=== PATIENT | female | born 1940 | race American Indian/Alaskan Native ===

== ENCOUNTER 2018-07-27 09:28 | Inpatient (IN) | payer MEDICARE, OTHER ==
[2018-07-27 10:43] LABS: BASO # 0.03 K/mm3 (0.0-2.0); BASO % 0.5 % (0.0-3.0); EOS # 0.1 (0.0-0.7); EOS % 2.2 % (1.5-5.0); GRAN # 4.09 (1.4-6.5); GRAN % 63.8 % (50.0-68.0); LYMPH # 1.7 (1.2-3.4); LYMPH % 26.3 % (22.0-35.0); MEAN CELL VOLUME 60.9 fl (80.0-105.0); MEAN CORPUSCULAR HEMOGLOBIN 15.7 pg (25.0-35.0); MEAN CORPUSCULAR HGB CONC 25.8 g/dl (31.0-37.0); MEAN PLATELET VOLUME 8.6 fl (7.0-11.0); MONO # 0.5 (0.1-0.6); MONO % 7.2 % (1.0-6.0); RBC 3.25 10^6/uL (3.5-6.1); RED CELL DISTRIBUTION WIDTH 20.2 % (11.5-14.5); WHITE BLOOD COUNT 6.4 10^3/uL (4.5-11.0)
[2018-07-27 10:47] LABS: HEMOGLOBIN 5.1 g/dL (12.0-16.0)
--- NOTE | 2018-07-27 10:47 | ED PDOC ---
Arrival/HPI - General Chief Complaint: Dizziness/Lightheaded Time Seen by Provider: 07/27/18 09:29 Historian: Patient - History of Present Illness Narrative History of Present Illness (Text): 07/27/18 10:40 78yo female with pmhx of Anemia bib EMS for complaint of generalized weakness. Patient states she saw her PMD on Sunday for generalized weakness and SOB and was referred for blood test. Did blood test yesterday and her PMD sent [place] Police to her house this morning to bring her to ED. States the SOB resolved and she is still having mild weakness. Notes history of melena last month and BPR few months ago. States she received blood transfusion 2years ago, s/p GI bleed. Currently not on any medication. Denies abdominal pain, chest pain, dizziness, nausea, vomiting, focal weakness, any other complaint. Past Medical History - Provider Review Nursing Documentation Reviewed: Yes - Cardiac Hx Cardiac Disorders: No - Pulmonary Hx Respiratory Disorders: No - Neurological Hx Neurological Disorder: No - HEENT Hx HEENT Disorder: No - Renal Hx Renal Disorder: No - Endocrine/Metabolic Hx Endocrine Disorders: No - Hematological/Oncological Hx Blood Disorders: Yes Hx Anemia: Yes Hx Blood Transfusions: Yes Hx Blood Transfusion Reaction: No - Integumentary Hx Dermatological Disorder: No - Musculoskeletal/Rheumatological Hx Musculoskeletal Disorders: No - Gastrointestinal Hx Gastrointestinal Disorders: Yes Hx Colitis: Yes Hx Gastritis: Yes Hx Hemorrhoids: Yes - Genitourinary/Gynecological Hx Genitourinary Disorders: No - Psychiatric Hx Psychophysiologic Disorder: No Hx Substance Use: No - Anesthesia Hx Anesthesia: Yes Hx Anesthesia Reactions: No Hx Malignant Hyperthermia: No - Suicidal Assessment Feels Threatened In Home Enviroment: No Family/Social History - Physician Review Nursing Documentation Reviewed: Yes Family/Social History: Unknown Family HX Smoking Status: Never Smoked Hx Alcohol Use: No Hx Substance Use: No Allergies/Home Meds Allergies/Adverse Reactions: Allergies No Known Allergies Allergy (Verified 07/27/18 11:59) Review of Systems - Physician Review All systems were reviewed & negative as marked: Yes - Review of Systems Constitutional: Fatigue Eyes: Normal ENT: Normal Respiratory: Normal Cardiovascular: Normal Gastrointestinal: Normal Genitourinary Female: Normal Musculoskeletal: Normal Skin: Normal Neurological: Normal Endocrine: Normal Hemo/Lymphatic: Normal Psychiatric: Normal Physical Exam Vital Signs Reviewed: Yes Vital Signs Temp Pulse Resp BP Pulse Ox 07/27/18 09:28 98.4 F 95 H 18 115/64 100 Temperature: Afebrile Blood Pressure: Normal Pulse: Regular Respiratory Rate: Normal Appearance: Positive for: Well-Appearing, Non-Toxic, Comfortable Pain Distress: None Mental Status: Positive for: Alert and Oriented X 3 - Systems Exam Head: Present: Atraumatic, Normocephalic Pupils: Present: PERRL Extroacular Muscles: Present: EOMI Conjunctiva: Present: Normal Mouth: Present: Moist Mucous Membranes Neck: Present: Normal Range of Motion Respiratory/Chest: Present: Clear to Auscultation, Good Air Exchange. No: Respiratory Distress, Accessory Muscle Use Cardiovascular: Present: Regular Rate and Rhythm, Normal S1, S2. No: Murmurs Abdomen: Present: Normal Bowel Sounds. No: Tenderness, Distention, Peritoneal Signs, Rebound, Guarding, McBurney's Point Tender, Rovsing's Sign Present Back: Present: Normal Inspection Upper Extremity: Present: Normal Inspection. No: Cyanosis, Edema Lower Extremity: Present: Normal Inspection. No: Edema Neurological: Present: GCS=15, CN II-XII Intact, Speech Normal Skin: Present: Warm, Dry, Normal Color. No: Rashes Psychiatric: Present: Alert, Oriented x 3, Normal Insight, Normal Concentration Medical Decision Making ED Course and Treatment: 07/27/18 11:21 78yo female referred to ED by her PMD for generalized weakness and low hemoglobin. Labs EKG Chest xray Type and screen EKG NSR @ 82bpm Chest xray - NAD Labs was reviewed and h/h of 5.1/19.8 notes 3units of PRBC ordered Consent for transfusion obtained Pt was admitted for symptomatic anemia Case was GABI Spencer and she accepted pt for admission. Requested Dr. Reis consult. Case was GABI Reis who saw pt in 2016 for same complaint. Disposition/Present on Arrival - Present on Arrival Any Indicators Present on Arrival: No History of DVT/PE: No History of Uncontrolled Diabetes: No Urinary Catheter: No History of Decub. Ulcer: No History Surgical Site Infection Following: None - Disposition Have Diagnosis and Disposition been Completed?: Yes Diagnosis: Symptomatic anemia Disposition: HOSPITALIZED Disposition Time: 11:00 Patient Plan: Admission Patient Problems: Current Active Problems Problem Status Onset Symptomatic anemia Acute Condition: FAIR
[2018-07-27 10:58] LABS: INR 1.02; PROTHROMBIN TIME 11.7 SECONDS (9.4-12.5)
[2018-07-27 10:59] LABS: PARTIAL THROMBOPLASTIN TIME 19.9 Seconds (25.1-36.5)
[2018-07-27 11:15] LABS: ALBUMIN 3.9 g/dL (3.0-4.8); ALT/SGPT 22 U/L (7-56); AST/SGOT 35 U/L (14-36); BLOOD UREA NITROGEN 15 mg/dL (7-21); CALCIUM 9.1 mg/dL (8.4-10.5); GFR NON-AFRICAN AMERICAN > 60
[2018-07-27 11:21] LABS: URINE APPEARANCE CLEAR (CLEAR); URINE BILIRUBIN NEGATIVE (NEGATIVE); URINE BLOOD NEGATIVE (NEGATIVE); URINE COLOR LIGHT YELLOW (YELLOW); URINE GLUCOSE (UA) NEGATIVE (NEGATIVE); URINE LEUKOCYTE ESTERASE NEGATIVE Leu/uL (NEGATIVE); URINE PROTEIN NEGATIVE mg/dL (<30 mg/dL); URINE UROBILINOGEN 0.2 E.U./dL (<1 E.U./dL)
[2018-07-27 11:25] LABS: TROPONIN I < 0.01 ng/mL
--- NOTE | 2018-07-27 14:17 | CP.PCM.CON ---
<Charlene Goyal - Last Filed: 07/27/18 14:19> History of Present Illness - History of Present Illness History of Present Illness: Gastroenterology Fellow/PGY6 Consult Note 78 year old female with PMH of PUD, colonic mass (without dysplasia/carcinoma on pathology) s/p extended right colectomy with anastomosis 11/2014, and iron deficiency anemia presenting with weakness and anemia on outpatient labs. Patient notes fatigue and not feeling well prompting her to see her PC{ this past Sunday and blood work obtained and follow up request for ER presentation due to low blood count. Patient endorses remote history of black stool with bright red blood per rectum for a few days in June 2018. Denies nausea, vomiting, hematemesis, abdominal pain, diarrhea, constipation, melena, or hematochezia. Prior EGD 12/2015 showed H pylori negative gastritis and marjorie ulcers. Colonoscopy 01/2016 showed end-side ileo-colonic anastomosis. EGD 11/2014- H. pylori gastritis. Family History- denies stomach cancer, colon cancer Social History- denies tobacco, alcohol, illicit drug use Surgical History- extended right colectomy with anastomosis 11/2014 Review of Systems - Review of Systems Review of Systems: 12-point review of systems negative except for as above Past Patient History - Past Medical History & Family History Past Medical History?: Yes - Past Social History Smoking Status: Never Smoked - CARDIAC Hx Cardiac Disorders: No - PULMONARY Hx Respiratory Disorders: No - NEUROLOGICAL Hx Neurological Disorder: No - HEENT Hx HEENT Problems: No - RENAL Hx Chronic Kidney Disease: No - ENDOCRINE/METABOLIC Hx Endocrine Disorders: No - HEMATOLOGICAL/ONCOLOGICAL Hx Blood Disorders: Yes Hx Anemia: Yes Hx Blood Transfusions: Yes Hx Blood Transfusion Reaction: No - INTEGUMENTARY Hx Dermatological Problems: No - MUSCULOSKELETAL/RHEUMATOLOGICAL Hx Musculoskeletal Disorders: No - GASTROINTESTINAL Hx Gastrointestinal Disorders: Yes Hx Colitis: Yes Hx Gastritis: Yes Hx Hemorrhoids: Yes - GENITOURINARY/GYNECOLOGICAL Hx Genitourinary Disorders: No - PSYCHIATRIC Hx Psychophysiologic Disorder: No Hx Substance Use: No - SURGICAL HISTORY Hx Surgeries: Yes - ANESTHESIA Hx Anesthesia: Yes Hx Anesthesia Reactions: No Hx Malignant Hyperthermia: No Meds Allergies/Adverse Reactions: Allergies Allergy/AdvReac Type Severity Reaction Status Date / Time No Known Allergies Allergy Verified 07/27/18 11:59 - Medications Medications: Current Medications Pantoprazole Sodium (Protonix Inj) 40 mg IVP DAILY TAYLOR Last Admin: 07/27/18 11:58 Dose: Not Given Physical Exam - Constitutional Appears: Non-toxic, No Acute Distress - Head Exam Head Exam: ATRAUMATIC, NORMOCEPHALIC - Eye Exam Eye Exam: EOMI, PERRL. absent: Scleral icterus Pupil Exam: PERRL. absent: Miosis, Mydriatic - ENT Exam ENT Exam: Mucous Membranes Moist, Normal Oropharynx - Neck Exam Neck exam: Positive for: Full Rom, Normal Inspection - Respiratory Exam Respiratory Exam: Clear to Auscultation Bilateral. absent: Rales, Rhonchi, Wheezes - Cardiovascular Exam Cardiovascular Exam: RRR, +S1, +S2. absent: Gallop, Rubs - GI/Abdominal Exam GI & Abdominal Exam: Normal Bowel Sounds, Soft. absent: Distended, Firm, Mass, Organomegaly, Rigid, Tenderness - Extremities Exam Extremities exam: Positive for: normal inspection. Negative for: pedal edema - Neurological Exam Neurological exam: Alert, Oriented x3 - Psychiatric Exam Psychiatric exam: Normal Affect, Normal Mood - Skin Skin Exam: Dry, Intact, Normal Color, Warm Results - Vital Signs Recent Vital Signs: Last Vital Signs Temp 97.6 F 07/27/18 13:00 Pulse 85 07/27/18 13:00 Resp 16 07/27/18 13:00 BP 116/63 07/27/18 13:00 Pulse Ox 100 07/27/18 13:00 - Labs Result Diagrams: 07/27/18 10:25 07/27/18 10:25 Labs: Laboratory Results - last 24 hr 07/27/18 07/27/18 07/27/18 10:25 10:25 10:25 WBC 6.4 RBC 3.25 L Hgb 5.1 L* Hct 19.8 L* MCV 60.9 L MCH 15.7 L MCHC 25.8 L RDW 20.2 H Plt Count 388 MPV 8.6 Gran % 63.8 Lymph % (Auto) 26.3 Levy % (Auto) 7.2 H Eos % (Auto) 2.2 Baso % (Auto) 0.5 Gran # 4.09 Lymph # (Auto) 1.7 Levy # (Auto) 0.5 Eos # (Auto) 0.1 Baso # (Auto) 0.03 PT 11.7 INR 1.02 APTT 19.9 L Sodium 139 Potassium 4.2 Chloride 109 H Carbon Dioxide 23 Anion Gap 11 BUN 15 Creatinine 0.7 Est GFR ( Amer) > 60 Est GFR (Non-Af Amer) > 60 Random Glucose 92 Calcium 9.1 Total Bilirubin 0.4 AST 35 ALT 22 Alkaline Phosphatase 71 Lactate Dehydrogenase 564 Total Creatine Kinase 138 Troponin I < 0.01 Total Protein 7.7 Albumin 3.9 Globulin 3.8 Albumin/Globulin Ratio 1.0 L Urine Color Urine Appearance Urine pH Ur Specific [place] Urine Protein Urine Glucose (UA) Urine Ketones Urine Blood Urine Nitrate Urine Bilirubin Urine Urobilinogen Ur Leukocyte Esterase Blood Type Antibody Screen Crossmatch BBK History Checked 07/27/18 07/27/18 10:50 10:50 WBC RBC Hgb Hct MCV MCH MCHC RDW Plt Count MPV Gran % Lymph % (Auto) Levy % (Auto) Eos % (Auto) Baso % (Auto) Gran # Lymph # (Auto) Levy # (Auto) Eos # (Auto) Baso # (Auto) PT INR APTT Sodium Potassium Chloride Carbon Dioxide Anion Gap BUN Creatinine Est GFR ( Amer) Est GFR (Non-Af Amer) Random Glucose Calcium Total Bilirubin AST ALT Alkaline Phosphatase Lactate Dehydrogenase Total Creatine Kinase Troponin I Total Protein Albumin Globulin Albumin/Globulin Ratio Urine Color Light yellow Urine Appearance Clear Urine pH 6.0 Ur Specific [place] 1.025 Urine Protein Negative Urine Glucose (UA) Negative Urine Ketones Negative Urine Blood Negative Urine Nitrate Negative Urine Bilirubin Negative Urine Urobilinogen 0.2 Ur Leukocyte Esterase Negative Blood Type O POSITIVE Antibody Screen Negative Crossmatch See Detail BBK History Checked Patient has bt Assessment & Plan - Assessment and Plan (Free Text) Assessment: 78 year old female with PMH of PUD, colonic mass (without dysplasia/carcinoma on pathology) s/p extended right colectomy with anastomosis 11/2014, and iron deficiency anemia presenting with weakness and anemia on outpatient labs. Active treatment of symptomatic anemia. Prior EGD 12/2015 showed H pylori negative gastritis and marjorie ulcers. Colonoscopy 01/2016 showed end-side ileo-colonic anastomosis. EGD 11/2014- H. pylori gastritis. Plan: -no overt signs of GI bleed -likely chronic blood loss -ordered for 3 Units pRBCs -monitor H/H -continue PPI IV BID -liquid diet -bowel prep Sunday -plan for EGD and colonoscopy Sunday <Vivienne Reis V - Last Filed: 07/28/18 00:01> Meds - Medications Medications: Current Medications Pantoprazole Sodium (Protonix Inj) 40 mg IVP DAILY TAYLOR Last Admin: 07/27/18 11:58 Dose: Not Given Results - Vital Signs Recent Vital Signs: Last Vital Signs Temp 98.6 F 07/27/18 21:25 Pulse 82 07/27/18 21:25 Resp 18 07/27/18 21:25 BP 121/78 07/27/18 23:44 Pulse Ox 99 07/27/18 17:48 - Labs Result Diagrams: 07/27/18 10:25 07/27/18 10:25 Labs: Laboratory Results - last 24 hr 07/27/18 07/27/18 07/27/18 10:25 10:25 10:25 WBC 6.4 RBC 3.25 L Hgb 5.1 L* Hct 19.8 L* MCV 60.9 L MCH 15.7 L MCHC 25.8 L RDW 20.2 H Plt Count 388 MPV 8.6 Gran % 63.8 Lymph % (Auto) 26.3 Levy % (Auto) 7.2 H Eos % (Auto) 2.2 Baso % (Auto) 0.5 Gran # 4.09 Lymph # (Auto) 1.7 Levy # (Auto) 0.5 Eos # (Auto) 0.1 Baso # (Auto) 0.03 PT 11.7 INR 1.02 APTT 19.9 L Sodium 139 Potassium 4.2 Chloride 109 H Carbon Dioxide 23 Anion Gap 11 BUN 15 Creatinine 0.7 Est GFR ( Amer) > 60 Est GFR (Non-Af Amer) > 60 Random Glucose 92 Calcium 9.1 Total Bilirubin 0.4 AST 35 ALT 22 Alkaline Phosphatase 71 Lactate Dehydrogenase 564 Total Creatine Kinase 138 Troponin I < 0.01 Total Protein 7.7 Albumin 3.9 Globulin 3.8 Albumin/Globulin Ratio 1.0 L Urine Color Urine Appearance Urine pH Ur Specific [place] Urine Protein Urine Glucose (UA) Urine Ketones Urine Blood Urine Nitrate Urine Bilirubin Urine Urobilinogen Ur Leukocyte Esterase Blood Type Antibody Screen Crossmatch BBK History Checked 07/27/18 07/27/18 10:50 10:50 WBC RBC Hgb Hct MCV MCH MCHC RDW Plt Count MPV Gran % Lymph % (Auto) Levy % (Auto) Eos % (Auto) Baso % (Auto) Gran # Lymph # (Auto) Levy # (Auto) Eos # (Auto) Baso # (Auto) PT INR APTT Sodium Potassium Chloride Carbon Dioxide Anion Gap BUN Creatinine Est GFR ( Amer) Est GFR (Non-Af Amer) Random Glucose Calcium Total Bilirubin AST ALT Alkaline Phosphatase Lactate Dehydrogenase Total Creatine Kinase Troponin I Total Protein Albumin Globulin Albumin/Globulin Ratio Urine Color Light yellow Urine Appearance Clear Urine pH 6.0 Ur Specific [place] 1.025 Urine Protein Negative Urine Glucose (UA) Negative Urine Ketones Negative Urine Blood Negative Urine Nitrate Negative Urine Bilirubin Negative Urine Urobilinogen 0.2 Ur Leukocyte Esterase Negative Blood Type O POSITIVE Antibody Screen Negative Crossmatch See Detail BBK History Checked Patient has bt Attending/Attestation - Attestation I have personally seen and examined this patient.: Yes I have fully participated in the care of the patient.: Yes I have reviewed all pertinent clinical information: Yes Notes (Text): This is an addendum to GI consult report dictated by the GI Fellow. The patient was seen and examined earlier. Medical records, lab studies, imagings were reviewed. Last 24 hours events reviewed. Agreed with the above treatment plan as outlined in GI Fellow 's notes with the addition of the following 07/28/18 00:01
--- NOTE | 2018-07-27 14:22 | HP ---
DATE OF EXAM: 07/27/2018 HISTORY OF PRESENT ILLNESS: The patient is a 78-year-old, a patient of Dr. Chiquita Butler. The patient states she went to see her PMD who did some blood work as she was found to be anemic. So, she was contacted and was brought to emergency room. The patient saw her PMD this past Sunday, 3 days ago, for generalized weakness and she was getting short of breath easily. The PCP's office was trying to contact the patient, but she did not answer. So, police went to her house this morning and brought her to emergency room for further evaluation. She does complain of shortness of breath yet, does complain of feeling weak and gets short of breath easily. She does have a history of black stools. She does have a history of previous GI bleeds. Denies any nausea or vomiting. No abdominal pain. PAST MEDICAL HISTORY: Significant for; 1. Gastritis. 2. Colitis. 3. History of hemorrhoid. 4. Iron-deficiency anemia. PAST SURGICAL HISTORY: Significant for partial colectomy because of a polypoidal mass. ALLERGIES: SHE IS NOT ALLERGIC TO ANY MEDICATIONS. MEDICATIONS: At home, she is on Protonix 40 daily. REVIEW OF SYSTEMS: Denies smoking, drinking, or alcohol use. Review of systems is significant for generalized weakness and easy fatigability. PHYSICAL EXAMINATION GENERAL: She is awake, alert, oriented, communicative. VITAL SIGNS: She is afebrile, pulse 95, respirations 18, blood pressure 115/64. LUNGS: Bilateral fair airflow. No rhonchi or crackle. HEART: S1, S2 audible. ABDOMEN: Soft, nontender. No rebound, no guarding. NEUROLOGIC: The patient is awake, alert, oriented, communicative. LABORATORY DATA: WBC 6.4, hemoglobin 5.1, hematocrit 19.8, platelets of 388. PT 11.7, INR 1.02, PTT 19.9. Chem-7 is pending. ASSESSMENT: 1. Symptomatic anemia, probably gastrointestinal bleed. 2. History of partial colectomy. 3. History peptic ulcer disease. PLAN: We will transfuse 2 packs of RBCs, start her on PPI. GI consult by Dr. Reis has been requested. We will follow up her CBC and CMP and make further recommendations and we will also discuss with GI for further management. Airam Spencer MD
--- NOTE | 2018-07-27 16:24 | RAD ---
Date of service: 07/27/2018 HISTORY: admission COMPARISON: No prior. FINDINGS: LUNGS: No active pulmonary disease. PLEURA: No significant pleural effusion identified, no pneumothorax apparent. CARDIOVASCULAR: No aortic atherosclerotic calcification present. Normal cardiac size. No congestive change. Retrocardiac hiatal hernia noted. OSSEOUS STRUCTURES: No significant abnormalities. VISUALIZED UPPER ABDOMEN: Normal. OTHER FINDINGS: None. IMPRESSION: No acute infiltrate. Hiatal hernia.
[2018-07-27] MEDS ORDERED: Pneumococcal 23-Valent Vaccine IM ONE (16:48)
[2018-07-27] MEDS ORDERED: Influenza Vaccine 60 mcg/0.5 mL SYR (4YR UP) IM ONE (16:48)
[2018-07-27 16:49] VITALS: BMI 25.8
--- NOTE | 2018-07-28 06:13 | CARD ---
APPROVED REPORT Date of service: 07/27/2018 EKG Measurement Heart [id number] <Conclusion> Normal sinus rhythm Normal ECG
[2018-07-28 08:34] LABS: BASO # 0.03 K/mm3 (0.0-2.0); BASO % 0.5 % (0.0-3.0); EOS # 0.3 (0.0-0.7); GRAN # 3.04 (1.4-6.5); GRAN % 53.8 % (50.0-68.0); LYMPH # 1.7 (1.2-3.4); LYMPH % 30.6 % (22.0-35.0); MEAN CELL VOLUME 67.3 fl (80.0-105.0); MEAN CORPUSCULAR HEMOGLOBIN 19.3 pg (25.0-35.0); MEAN CORPUSCULAR HGB CONC 28.7 g/dl (31.0-37.0); MEAN PLATELET VOLUME 8.7 fl (7.0-11.0); MONO # 0.6 (0.1-0.6); MONO % 10.1 % (1.0-6.0); RBC 4.25 10^6/uL (3.5-6.1); RED CELL DISTRIBUTION WIDTH 25.4 % (11.5-14.5); WHITE BLOOD COUNT 5.7 10^3/uL (4.5-11.0)
[2018-07-28 08:41] LABS: HEMOGLOBIN 8.2 g/dL (12.0-16.0)
[2018-07-28 08:53] LABS: ALB/GLOB RATIO 1.1 (1.1-1.8); ALBUMIN 3.7 g/dL (3.0-4.8); ALT/SGPT 23 U/L (7-56); AST/SGOT 36 U/L (14-36); BLOOD UREA NITROGEN 10 mg/dL (7-21); CALCIUM 9.2 mg/dL (8.4-10.5); GFR NON-AFRICAN AMERICAN > 60
[2018-07-28] MEDS ORDERED: Barium Sulfate Susp 2.1% w/v, 2.0% w/w 450 mL Bottle PO ONE (09:38)
[2018-07-28] MEDS ORDERED: Iohexol 350 MG/100 ML VIAL ONE (11:11)
[2018-07-28 11:16] LABS: FREE T4 1.22 ng/dL (0.78-2.19)
[2018-07-28] MEDS ORDERED: Peg-Electrolyte Oral Soln 4L (Golytely) PO ONE (12:00)
--- NOTE | 2018-07-28 14:59 | CT ---
Date of service: 07/28/2018 PROCEDURE: CT Abdomen and Pelvis with contrast HISTORY: symptomatic anemia,eval for abdominal pathology COMPARISON: 12/02/2015 TECHNIQUE: Contrast dose: 100 mL Omnipaque 350 Radiation dose: Total exam DLP = 845.04 mGy-cm. This CT exam was performed using one or more of the following dose reduction techniques: Automated exposure control, adjustment of the mA and/or kV according to patient size, and/or use of iterative reconstruction technique. FINDINGS: LOWER THORAX: No infiltrate/effusion. Moderate hiatal hernia. LIVER: Unremarkable. No gross lesion or ductal dilatation. GALLBLADDER AND BILE DUCTS: Unremarkable. PANCREAS: Unremarkable. No gross lesion or ductal dilatation. SPLEEN: Unremarkable. ADRENALS: Unremarkable. No mass. KIDNEYS AND URETERS: Unremarkable. No hydronephrosis. No solid mass. VASCULATURE: Unremarkable. No aortic aneurysm. There is minimal atherosclerotic calcification of the abdominal aorta BOWEL: The patient is status post partial colectomy. Descending and sigmoid colon remain intact. No bowel obstruction no other abnormal bowel loops. APPENDIX: Partial colectomy PERITONEUM: Unremarkable. No free fluid. No free air. LYMPH NODES: Unremarkable. No enlarged lymph nodes. BLADDER: Poorly distended REPRODUCTIVE: Normal uterus BONES: No acute fracture. Grade 1 anterolisthesis at L4-5 likely degenerative in origin. OTHER FINDINGS: None. IMPRESSION: Partial colectomy. Moderate hiatal hernia. No acute intra-abdominal process identified. No evidence of neoplasm or hemorrhage.
--- NOTE | 2018-07-28 15:32 | CP.PCM.PN ---
<Charlene Goyal - Last Filed: 07/28/18 15:29> Subjective - Date & Time of Evaluation Date of Evaluation: 07/28/18 Time of Evaluation: 15:29 - Subjective Subjective: Gastroenterology Fellow/PGY6 Progress Note Patient resting comfortably. Tolerated liquid diet. A 12-point review of systems negative except for as above. Objective - Vital Signs/Intake and Output Vital Signs (last 24 hours): Temp Pulse Resp BP Pulse Ox 99.1 F 80 18 119/63 98 07/28/18 06:00 07/28/18 10:00 07/28/18 06:00 07/28/18 06:00 07/28/18 06:00 Intake and Output: 07/28/18 07/28/18 06:59 18:59 Intake Total 780 Output Total 300 Balance 480 - Medications Medications: Current Medications Bisacodyl (Dulcolax) 10 mg PO ONCE ONE Stop: 07/28/18 19:01 Pantoprazole Sodium (Protonix Inj) 40 mg IVP DAILY TAYLOR Last Admin: 07/28/18 10:29 Dose: 40 mg - Labs Labs: 07/28/18 08:18 07/28/18 08:18 PT 11.7 SECONDS (9.4-12.5) 07/27/18 10:25 INR 1.02 07/27/18 10:25 APTT 19.9 Seconds (25.1-36.5) L 07/27/18 10:25 - Constitutional Appears: Non-toxic, No Acute Distress - Head Exam Head Exam: ATRAUMATIC, NORMOCEPHALIC - Eye Exam Eye Exam: EOMI, PERRL. absent: Scleral icterus Pupil Exam: PERRL. absent: Miosis, Mydriatic - ENT Exam ENT Exam: Mucous Membranes Moist, Normal Oropharynx - Neck Exam Neck Exam: Full ROM, Normal Inspection - Respiratory Exam Respiratory Exam: Clear to Ausculation Bilateral. absent: Rales, Rhonchi, Wheezes - Cardiovascular Exam Cardiovascular Exam: RRR, +S1, +S2. absent: Gallop, Rubs - GI/Abdominal Exam GI & Abdominal Exam: Soft, Normal Bowel Sounds. absent: Distended, Firm, Guarding, Rigid, Tenderness, Organomegaly, Rebound - Extremities Exam Extremities Exam: Normal Inspection. absent: Pedal Edema - Neurological Exam Neurological Exam: Alert, Awake - Psychiatric Exam Psychiatric exam: Normal Affect, Normal Mood - Skin Skin Exam: Dry, Intact, Normal Color, Warm Assessment and Plan - Assessment and Plan (Free Text) Assessment: 78 year old female with PMH of PUD, colonic mass (without dysplasia/carcinoma on pathology) s/p extended right colectomy with anastomosis 11/2014, and iron deficiency anemia presenting with weakness and anemia on outpatient labs. Active treatment of symptomatic anemia s/p 3 units pRBCS with appropriate response. Prior EGD 12/2015 showed H pylori negative gastritis and marjorie ulcers. Colonoscopy 01/2016 showed end-side ileo-colonic anastomosis. EGD 11/2014- H. pylori gastritis. Plan: -no overt signs of GI bleed -likely chronic blood loss -monitor H/H -continue PPI IV BID -liquid diet today -ordered Golytely bowel prep -NPO after midnight -EGD and colonoscopy 07/29/18 <Vivienne Reis V - Last Filed: 07/29/18 00:15> Objective - Vital Signs/Intake and Output Vital Signs (last 24 hours): Temp Pulse Resp BP Pulse Ox 97.2 F L 74 16 96/59 L 98 07/28/18 16:00 07/28/18 18:00 07/28/18 16:00 07/28/18 16:00 07/28/18 16:00 Intake and Output: 07/28/18 07/29/18 18:59 06:59 Intake Total 1560 Balance 1560 - Medications Medications: Current Medications Pantoprazole Sodium (Protonix Inj) 40 mg IVP DAILY TAYLOR Last Admin: 07/28/18 10:29 Dose: 40 mg - Labs Labs: 07/28/18 08:18 07/28/18 08:18 PT 11.7 SECONDS (9.4-12.5) 07/27/18 10:25 INR 1.02 07/27/18 10:25 APTT 19.9 Seconds (25.1-36.5) L 07/27/18 10:25 Attending/Attestation - Attestation I have personally seen and examined this patient.: Yes I have fully participated in the care of the patient.: Yes I have reviewed all pertinent clinical information, including history, physical exam and plan: Yes Notes (Text): This is an addendum to GI progress report dictated by the GI Fellow.The patient was seen and examined earlier. Medical records, lab studies, imagings were reviewed. Last 24 hours events reviewed. Agreed with the above treatment plan as outlined in GI Fellow 's notes with the addition of the following 07/29/18 00:14
[2018-07-28] MEDS ORDERED: Bisacodyl 5mg EC Tab PO ONE (19:00)
--- NOTE | 2018-07-28 21:18 | PN ---
DATE: 07/28/2018 SUBJECTIVE: The patient is a 78-year-old, seen and examined, lying in bed, reading her bible. No more episode of vomiting. No rectal bleeding. The patient in liquid diet. PHYSICAL EXAMINATION: VITAL SIGNS: She is afebrile. Pulse 60, respiration 18 and blood pressure 119/63. LUNGS: Bilateral fair air flow. No rhonchi or crackles. HEART: S1 and S2, audible. ABDOMEN: Soft and nontender. No rebound. No guarding. NEUROLOGICAL: The patient is awake, alert, oriented and communicative. LABORATORY DATA: WBC 5.5, hemoglobin 8.2, hematocrit 28.6, and platelet of 309. Chemistry; sodium 139, potassium 4.2, chloride 107, CO2 of 27, BUN 19, creatinine 0.8 and blood sugar of 85. CT scan of the abdomen and pelvis was done that shows hiatal hernia. No acute intraabdominal abnormality; however, she is status partial colectomy. ASSESSMENT: 1. Gastrointestinal bleed, etiology unclear. 2. History of partial colectomy because of colonic mass. 3. Iron deficiency anemia. PLAN: Currently, the patient is on Protonix. She is getting clear liquid diet. She is getting prep for colonoscopy and endoscopy tomorrow. Airam Spencer MD
[2018-07-29] MEDS ORDERED: Dextrose 5%/0.45% NS 1,000 ML IV SCH (11:00)
[2018-07-29] MEDS ORDERED: Etomidate 20 mg/10ml Inj IV ONE (15:01)
[2018-07-29] MEDS ORDERED: Propofol 10 mg/ml Inj (20 ML) ONE ×3 (15:01→15:48)
--- NOTE | 2018-07-29 15:58 | PN ---
DATE: 07/29/2018 SUBJECTIVE: The patient is 78-year-old, seen and examined. Awake, alert, oriented and communicative not in any acute distress. She is currently n.p.o. for endoscopy and colonoscopy. No chest pain. No shortness of breath. PHYSICAL EXAMINATION: VITAL SIGNS: She is afebrile. Pulse is 70, respiration 20 and blood pressure 119/69. LUNGS: Bilateral fair airflow. No rhonchi or crackles. HEART: S1 and S2, audible. ABDOMEN: Soft and nontender. No rebound. No guarding. NEUROLOGICAL: The patient is awake, alert, oriented and communicative. EXTREMITIES: Bilateral leg no edema. LABORATORY DATA: There is no lab available today. CT scan of the abdomen and pelvis shows partial colectomy, hiatal hernia, no acute intraabdominal finding noted. ASSESSMENT: 1. Status post gastrointestinal bleed, status post blood transfusion. 2. History of partial colectomy. PLAN: The patient is currently n.p.o. will start her on IV fluid. Continue her on IV Protonix. We will followup for CBC and CMP in a.m. Airam Spencer MD
[2018-07-29] MEDS ORDERED: Sodium Chloride 0.9% 1,000 ML IV SCH (16:45)
[2018-07-30 06:20] LABS: BASO # 0.03 K/mm3 (0.0-2.0); BASO % 0.5 % (0.0-3.0); EOS # 0.2 (0.0-0.7); EOS % 3.9 % (1.5-5.0); GRAN # 2.61 (1.4-6.5); GRAN % 43.9 % (50.0-68.0); HEMOGLOBIN 8.3 g/dL (12.0-16.0); LYMPH # 2.1 (1.2-3.4); LYMPH % 35.7 % (22.0-35.0); MEAN CELL VOLUME 68.1 fl (80.0-105.0); MEAN CORPUSCULAR HEMOGLOBIN 18.9 pg (25.0-35.0); MEAN CORPUSCULAR HGB CONC 27.8 g/dl (31.0-37.0); MEAN PLATELET VOLUME 8.7 fl (7.0-11.0); RBC 4.39 10^6/uL (3.5-6.1); RED CELL DISTRIBUTION WIDTH 26.5 % (11.5-14.5); WHITE BLOOD COUNT 5.9 10^3/uL (4.5-11.0)
[2018-07-30 06:47] LABS: ALBUMIN 3.5 g/dL (3.0-4.8); ALT/SGPT 24 U/L (7-56); AST/SGOT 37 U/L (14-36); BLOOD UREA NITROGEN 11 mg/dL (7-21); CALCIUM 9.1 mg/dL (8.4-10.5); GFR NON-AFRICAN AMERICAN > 60
[2018-07-30 07:57] VITALS: BP 125/77; PULSE 71; RESP 20; TEMP 98.7; O2SAT 97
--- NOTE | 2018-07-30 11:22 | CP.PCM.PN ---
<Tanmay Fontanez - Last Filed: 07/30/18 11:18> Subjective - Date & Time of Evaluation Date of Evaluation: 07/30/18 Time of Evaluation: 08:15 - Subjective Subjective: PGY-4 GI Fellow Prog Note Pt lying in bed eating breakfast when seen this AM. States she is doing well without any complaints. Denied abd pain, n/v. 5 point ROS negative other than stated above Objective - Vital Signs/Intake and Output Vital Signs (last 24 hours): Temp Pulse Resp BP Pulse Ox 98.7 F 71 20 125/77 97 07/30/18 07:56 07/30/18 07:56 07/30/18 07:56 07/30/18 07:56 07/30/18 07:56 Intake and Output: 07/30/18 07/30/18 06:59 18:59 Intake Total 120 Balance 120 - Medications Medications: Current Medications Ferrous Sulfate (Feosol) 324 mg PO TID [facility] Dextrose/Sodium Chloride (Dextrose 5%/0.45% Ns 1000 Ml) 1,000 mls @ 60 mls/hr IV .[id number] [facility] Last Admin: 07/29/18 13:34 Dose: 60 mls/hr Pantoprazole Sodium (Protonix Ec Tab) 40 mg PO 0600 [facility] - Labs Labs: 07/30/18 06:00 07/30/18 06:00 PT 11.7 SECONDS (9.4-12.5) 07/27/18 10:25 INR 1.02 07/27/18 10:25 APTT 19.9 Seconds (25.1-36.5) L 07/27/18 10:25 - Constitutional Appears: Well, No Acute Distress - Head Exam Head Exam: ATRAUMATIC, NORMAL INSPECTION - Eye Exam Eye Exam: EOMI. absent: Scleral icterus - ENT Exam ENT Exam: Mucous Membranes Moist. absent: Mucous Membranes Dry - Respiratory Exam Respiratory Exam: NORMAL BREATHING PATTERN. absent: Accessory Muscle Use, Respi ratory Distress - GI/Abdominal Exam GI & Abdominal Exam: Soft, Normal Bowel Sounds. absent: Bruit, Distended, Firm, Guarding, Rigid, Tenderness, Mass, Organomegaly, Pulsatile Mass Assessment and Plan - Assessment and Plan (Free Text) Assessment: 78 year old female with PMH of PUD, colonic mass (without dysplasia/carcinoma on pathology) s/p extended right colectomy with anastomosis 11/2014, and iron deficiency anemia presenting with weakness and anemia on outpatient labs. Active treatment of symptomatic anemia s/p 3 units pRBCS with appropriate response. Prior EGD 12/2015 showed H pylori negative gastritis and marjorie ulcers. Colonoscopy 01/2016 showed end-side ileo-colonic anastomosis. EGD 11/2014- H. pylori gastritis. Plan: - EGD with marjorie ulcers/erosions, largest biopsied; likely cause of anemia --- F/u biopsy results - CSPY with patent anastamosis, diverticulosis and hemorrhoids - Start Iron supplementation - Cont PPI Pt discussed with Dr. Reis; please see attestation for further recs/changes. <Vivienne Reis V - Last Filed: 07/31/18 00:02> Objective - Vital Signs/Intake and Output Vital Signs (last 24 hours): Temp Pulse Resp BP Pulse Ox 98.7 F 71 20 125/77 97 07/30/18 07:56 07/30/18 07:56 07/30/18 07:56 07/30/18 07:56 07/30/18 07:56 - Labs Labs: 07/30/18 06:00 07/30/18 06:00 PT 11.7 SECONDS (9.4-12.5) 07/27/18 10:25 INR 1.02 07/27/18 10:25 APTT 19.9 Seconds (25.1-36.5) L 07/27/18 10:25 Attending/Attestation - Attestation I have personally seen and examined this patient.: Yes I have fully participated in the care of the patient.: Yes I have reviewed all pertinent clinical information, including history, physical exam and plan: Yes Notes (Text): This is an addendum to GI progress report dictated by the GI Fellow.The patient was seen and examined earlier. Medical records, lab studies, imagings were reviewed. Last 24 hours events reviewed. Agreed with the above treatment plan as outlined in GI Fellow 's notes with the addition of the following 07/31/18 00:01
--- NOTE | 2018-07-30 19:44 | DS ---
HISTORY OF PRESENT ILLNESS: The patient is a 78-year-old black female who came to emergency room because she was weak and short of breath. The patient is very independent, lives by herself. The patient states she went to see her new doctor who did blood work and called her that she is anemic, she should go to emergency room. The patient was found to have hemoglobin of 5.1 and hematocrit of 19.8. The patient was given 3 blood transfusions, started to do well, and had endoscopy done. Yesterday, she Carloz ulcer in hiatal hernia and gastritis. She was also had colonoscopy done that is unremarkable. PHYSICAL EXAMINATION: GENERAL: Today; she is awake, alert, oriented, and communicative. VITAL SIGNS: She is afebrile, pulse 71, respirations 20, and blood pressure 125/77. LUNGS: Bilateral good airflow. No rhonchi or crackles. HEART: S1 and S2 audible. ABDOMEN: Soft and nontender. No rebound. No guarding. NEUROLOGIC: The patient is awake, alert, oriented, and communicative. LABORATORY DATA: WBC 5.9, hemoglobin 8.3, hematocrit 29, and platelet 310. Chemistry; sodium 139, potassium 4.1, chloride 107, CO2 of 28, BUN 11, creatinine 0.9, and blood sugar of 92. Urinalysis is unremarkable. ASSESSMENT: 1. Symptomatic anemia. 2. Carloz ulcer in the hiatal hernia area. 3. History of colon cancer, status post ascending and transverse colectomy. 4. History of hypertension, currently normotensive. PLAN: The patient to discuss with Dr. Reis. The patient will be discharge home on Protonix 40 daily, Ferrex 150 daily, Colace 200 daily, and she will follow up either with her PMD or myself to follow her H and H and she is advised to have endoscopy done in two to three months again. Airam Spencer MD
[2018-07-31] MEDS ORDERED: Pantoprazole 40 mg EC Tab PO SCH (06:00)
== END 2018-07-30 13:53 | disposition home or self-care (01) | DRG 379 ==
LOC: ED 09:28 → ERH 11:05 → 3RNO 16:05
PROVIDERS: ADMIT Internal Medicine; ATTEND Internal Medicine
PROC: 30233N1 Transfusion of Nonautologous Red Blood Cells into Peripheral Vein, Percutaneous Approach (ICD-10-PCS; 2018-07-27)
PROC: 0DJD8ZZ Inspection of Lower Intestinal Tract, Via Natural or Artificial Opening Endoscopic (ICD-10-PCS; 2018-07-29)
PROC: 0DB98ZX Excision of Duodenum, Via Natural or Artificial Opening Endoscopic, Diagnostic (ICD-10-PCS; principal; 2018-07-29 13:45)
PROC: 0DB68ZX Excision of Stomach, Via Natural or Artificial Opening Endoscopic, Diagnostic (ICD-10-PCS; 2018-07-29 13:45)
DX: K92.2 Gastrointestinal hemorrhage, unspecified (principal); D50.0 Iron deficiency anemia secondary to blood loss (chronic); K25.9 Gastric ulcer, unspecified as acute or chronic, without hemorrhage or perforation; K44.9 Diaphragmatic hernia without obstruction or gangrene; K29.50 Unspecified chronic gastritis without bleeding; K57.30 Diverticulosis of large intestine without perforation or abscess without bleeding; I10 Essential (primary) hypertension; K64.1 Second degree hemorrhoids; Z85.038 Personal history of other malignant neoplasm of large intestine; Z90.49 Acquired absence of other specified parts of digestive tract